=== PATIENT | female | born 1960 | race Caucasian/White ===

== ENCOUNTER → 2016-10-06 | Outpatient (CLI) | payer MEDICARE | LOC: EMI 09:36 | DX: M54.16 Radiculopathy, lumbar region (principal); M51.17 Intervertebral disc disorders with radiculopathy, lumbosacral region; M47.817 Spondylosis without myelopathy or radiculopathy, lumbosacral region; M48.07 Spinal stenosis, lumbosacral region | CPT/HCPCS: 72148 ==

== ENCOUNTER → 2020-08-07 | Outpatient (CLI) | payer MEDICARE ==
[~2020-08-07] MED LIST: AIMOVIG AU70 MG/1 ML SQ; AMITRIPTYLINE H10 MG PO; BOTOX INJ 1100 UNITS IM; CENTRUM SILVER1 EAC4 PO; CETIRIZINE HCL10 MG PO; DEXILANT60 MG PO; ESCITALOPRAM OX20 MG PO; HYDROCODON-ACE1 EAC6 PO; IBUPROFEN600 MG PO; IBUPROFEN800 MG PO; KEFLEX CAP 500500 MG PO; LEVOTHYROXINE50 MCG PO; LIORESAL TAB 1010 MG PO; MACROBID 100 M100 MG PO; MAGNESIUM500 MG PO; MEDROL4 MG PO; MINOCYCLINE HC100 MG PO; MONTELUKAST SOD10 MG PO; NABUMETONE500 MG PO; ONDANSETRON ODT4 MG PO; POTASSIUM99 M1 PO; QUETIAPINE FUM100 MG PO; SUMATRIPTAN SU100 MG PO; TAMOXIFEN CITRA20 MG PO; TIZANIDINE HCL2 MG PO; VITAMIN D 40400 UNIT PO
[2020-08-07 13:40] LABS: HEMOGLOBIN 13.3 gm/dl (12.3-15.3); RED BLOOD COUNT 4.17 M/UL (4.00-5.10); WHITE BLOOD COUNT 3.3 K/UL (4.5-11.0)
== END ==
LOC: OPSV2 12:30
PROVIDERS: Obstetrics & Gynecology
DX: Z01.812 Encounter for preprocedural laboratory examination (principal); R93.89 Abnormal findings on diagnostic imaging of other specified body structures
CPT/HCPCS: 36415; 81001; 85027; 93005

== ENCOUNTER → 2020-08-17 | Day surgery (SDC) | payer MEDICARE ==
[~2020-08-17] VITALS: Ht 160 cm; Wt 68.0 kg
== END | disposition home or self-care (01) ==
LOC: OR 07:30
DX: N85.8 Other specified noninflammatory disorders of uterus (principal); E03.9 Hypothyroidism, unspecified; K21.9 Gastro-esophageal reflux disease without esophagitis; K44.9 Diaphragmatic hernia without obstruction or gangrene; M79.7 Fibromyalgia; M19.90 Unspecified osteoarthritis, unspecified site; F41.8 Other specified anxiety disorders; I49.9 Cardiac arrhythmia, unspecified; Z83.3 Family history of diabetes mellitus; Z80.9 Family history of malignant neoplasm, unspecified; Z82.49 Family history of ischemic heart disease and other diseases of the circulatory system; Z79.899 Other long term (current) drug therapy; Z20.822 Contact with and (suspected) exposure to COVID-19; Z79.810 Long term (current) use of selective estrogen receptor modulators (SERMs); Z85.828 Personal history of other malignant neoplasm of skin; Z85.3 Personal history of malignant neoplasm of breast
CPT/HCPCS: 71045; J2001; J2405; J2704; J2795; J3010; J7120

== ENCOUNTER → 2021-04-24 | Outpatient (CLI) | payer MEDICARE | LOC: KOH-I 10:16 | DX: M51.36 Other intervertebral disc degeneration, lumbar region (principal); M48.07 Spinal stenosis, lumbosacral region; M47.816 Spondylosis without myelopathy or radiculopathy, lumbar region | CPT/HCPCS: 72148 ==

== ENCOUNTER → 2021-05-09 | Outpatient (CLI) | payer MEDICARE | LOC: LAB 15:02 | DX: E89.0 Postprocedural hypothyroidism (principal) | CPT/HCPCS: 36415; 84443 ==